=== PATIENT | male | born 1990 | race Caucasian/White ===

== ENCOUNTER → 2020-03-03 11:10 | Outpatient (BNVA) | payer SELFPAY | PROVIDERS: Family Provider Family Medicine; PCP Family Medicine; Visit Provider Emergency Medicine | DX: R11.0 Nausea (principal); A09 Infectious gastroenteritis and colitis, unspecified; R68.89 Other general symptoms and signs | CPT/HCPCS: 87400; 87635 ==

== ENCOUNTER → 2020-05-06 12:35 | Outpatient (BNVA) | payer MEDICARE, MEDICAID, SELFPAY | PROVIDERS: Family Provider Family Medicine; PCP Family Medicine; Visit Provider Emergency Medicine | DX: E11.65 Type 2 diabetes mellitus with hyperglycemia (principal); E78.1 Pure hyperglyceridemia; Z79.899 Other long term (current) drug therapy | CPT/HCPCS: 36416; 80053; 80061; 80164; 82652; 82962; 83036; 83880; 84443; 87635 ==

== ENCOUNTER → 2020-09-08 10:29 | Outpatient (BNVA) | payer MEDICARE, MEDICAID, SELFPAY | PROVIDERS: Family Provider Family Medicine; PCP Family Medicine; Visit Provider Family Medicine | DX: E11.40 Type 2 diabetes mellitus with diabetic neuropathy, unspecified (principal); L21.9 Seborrheic dermatitis, unspecified | CPT/HCPCS: 80053; 83036 ==

== ENCOUNTER 2020-10-12 16:16 | Inpatient (IN) | payer MEDICARE, MEDICAID, SELFPAY ==
[2020-10-12 16:25] VITALS: BP 112/74; PULSE 56; RESP 16; TEMP 36.8; O2SAT 100; BMI 40.8
[2020-10-12 16:31] VITALS: BP 112/74; PULSE 59; RESP 18; O2SAT 100
--- NOTE | 2020-10-12 16:58 | ED_ITS ---
HPI - Psych General: Chief Complaint: Psychiatric Symptoms Stated Complaint: SI Time Seen by Provider: 10/12/20 16:52 History of Present Illness: HPI Narrative: 30-year-old male presents to the emergency room with complaints of auditory hallucinations. He states he has a history of schizophrenia he recently ran out of his Risperdal they had increased it. He states he is having increased auditory hallucinations he says the voices are telling him to kill himself he states he does not want to kill himself but is afraid he will give into the voices. He denies having done anything to himself up to this point denies any recent illnesses. complaint: suicidal ideation and altered mental status Onset (ago): day(s) Duration: constant History of same: Yes Relieving factors: none Exacerbating factors: none Context: not taking psychiatric medications Associated psychiatric symptoms: none Associated symptoms: Reports auditory hallucinations, depression and suicidal ideation; Deny visual hallucinations, delusions, homicidal ideation or racing thoughts Treatments prior to arrival: none If self harm: admits thoughts of self harm and has plan Review of Systems Const: Denies: fever(s), chills, body aches, change in appetite, fatigue or malaise ENMT: Denies: throat pain, ear or mastoid pain, nasal discharge or nasal congestion Card: Denies: chest pain, edema, dyspnea on exertion or orthopnea Resp: Denies: dyspnea, productive cough or non-productive cough GI: Denies: abdominal pain, nausea, vomiting, hematemesis, coffee ground emesis, diarrhea, constipation, bloating, hematochezia or melena : Denies: flank pain, dysuria, urinary frequency or urinary urgency Skin/Breast: Denies: rash or pruritus Psych: Reports: depression, auditory hallucinations and suicidal ideation; Denies: visual hallucinations or homicidal ideation PFS ED PFSH: Medical History (Updated 09/10/20 @ 22:56 by Yoselyn Angel MD) Chronic schizophrenia Diabetic neuropathy Hypertriglyceridemia Obstructive sleep apnea (adult) (pediatric) Type 2 diabetes mellitus without complication, without long-term current use of insulin Surgical History S/P appendectomy S/P tonsillectomy Social History Smoking and tobacco status: former smoker Physical Exam Const: COMMON NORMALS: no acute distress GENERAL APPEARANCE: cooperative and comfortable HENMT: COMMON NORMALS: normocephalic, atraumatic and hearing grossly normal bilaterally HEAD & SCALP: normocephalic and atraumatic Eye: COMMON NORMALS: Equal, round and reactive pupils present, EOMs intact bilaterally, conjunctivae normal and no scleral icterus CONJUNCTIVA: Yes conjunctivae normal PUPIL: Yes Equal, round and reactive pupils present Neck/C-Spine: COMMON NORMALS: no JVD Resp: COMMON NORMALS: normal respiratory effort, No retractions, No use of accessory muscles and clear to auscultation bilaterally AUSCULTATION: clear to auscultation bilaterally Cardio: COMMON NORMALS: no JVD, regular rate, regular rhythm and No murmurs present (Cardio) RATE: regular rate RHYTHM: regular rhythm GI: COMMON NORMALS: Soft to palpation and No hepatosplenomegaly present AUSCULTATION: Yes normoactive bowel sounds PALPATION: Yes Soft to palpation, No Tenderness to palpation present (GI), No Guarding due to palpation present (GI) and Yes No hepatosplenomegaly present Extremity: COMMON NORMALS: normal to inspection, capillary refill normal, no clubbing, cyanosis or edema, no calf tenderness and no pedal edema Psych: THOUGHT CONTENT: No delusions Skin: COMMON NORMALS: no rashes or lesions noted GENERAL SKIN EXAM: no rashes or lesions noted MDM - Psych MDM Narrative: Medical decision making narrative: Patient acutely psychotic with auditory hallucinations threatening harm to himself discussed Dr. Angel will admit to neuro psych Lab Data: Labs: Lab Results 10/12/20 10/12/20 10/12/20 Range/Units 04:33 16:45 17:05 WBC 9.9 (4.0-10.0) 10^3/ uL RBC 4.89 (4.1-5.3) 10^6/u L Hgb 15.0 (11.7-16.6) g/dL Hct 44.8 (42.0-52.0) % MCV 91.6 (80-94) fL MCH 30.7 (28.0-34.0) pg MCHC 33.5 (30.0-36.0) g/dL RDW 11.9 L (12.1-15.1) % Plt Count 292 (130-400) 10^3/c mm MPV 10.7 H (7.4-10.4) fL Neut % (Auto) 50.2 % Lymph % (Auto) 37.7 % Kenton % (Auto) 8.8 % Eos % (Auto) 1.9 % Baso % (Auto) 0.9 % Neut # (Auto) 4.95 (1.8-7.7) 10^3/u L Lymph # (Auto) 3.7 (0.8-4.8) 10^3/u L Kenton # (Auto) 0.9 (0.2-0.9) 10^3/u L Eos # (Auto) 0.2 (0.0-0.8) 10^3/u L Baso # (Auto) 0.1 (0.0-0.1) 10^3/u L Nucleated RBC % (a uto) 0 % Nucleated RBCs # 0.0 /100WBC Sodium (136-145) mmol/L Potassium (3.5-5.1) mmol/L Chloride (98-107) mmol/L Carbon Dioxide (22-29) mmol/L Anion Gap (5-19) BUN (6-20) mg/dL Creatinine (0.7-1.2) mg/dL GFR Calculation (90-130) mL/min Glucose (65-115) mg/dL Calculated Osmolal ity (285-295) mOsm/k g Calcium (8.5-10.5) mg/dL Total Bilirubin (0.15-1.2) mg/dL AST (0-40) U/L ALT (0-41) U/L Alkaline Phosphata se (40-130) IU/L Total Protein (6.6-8.7) g/dL Albumin (3.5-5.2) g/dL Globulin (1.3-4.6) g/dL Salicylates (3-10) mg/dL Urine Opiates Scre en Negative (Negative) ng/mL Acetaminophen (10-30) ug/mL Ur Barbiturates Sc reen Negative (Negative) ng/mL Valproic Acid 12.9 L (50-100) ug/mL Ur Phencyclidine S crn Negative (Negative) ng/mL Ur Amphetamines Sc reen Negative (Negative) ng/mL U Benzodiazepines Scrn Negative (Negative) ng/mL Urine Cocaine Scre en Negative (Negative) ng/mL U Marijuana (THC) Screen Negative (Negative) ng/mL 10/12/20 Range/Units 17:05 WBC (4.0-10.0) 10^3/ uL RBC (4.1-5.3) 10^6/u L Hgb (11.7-16.6) g/dL Hct (42.0-52.0) % MCV (80-94) fL MCH (28.0-34.0) pg MCHC (30.0-36.0) g/dL RDW (12.1-15.1) % Plt Count (130-400) 10^3/c mm MPV (7.4-10.4) fL Neut % (Auto) % Lymph % (Auto) % Kenton % (Auto) % Eos % (Auto) % Baso % (Auto) % Neut # (Auto) (1.8-7.7) 10^3/u L Lymph # (Auto) (0.8-4.8) 10^3/u L Kenton # (Auto) (0.2-0.9) 10^3/u L Eos # (Auto) (0.0-0.8) 10^3/u L Baso # (Auto) (0.0-0.1) 10^3/u L Nucleated RBC % (a uto) % Nucleated RBCs # /100WBC Sodium 140 (136-145) mmol/L Potassium 4.1 (3.5-5.1) mmol/L Chloride 102 (98-107) mmol/L Carbon Dioxide 27 (22-29) mmol/L Anion Gap 15.1 (5-19) BUN 10 (6-20) mg/dL Creatinine 0.7 (0.7-1.2) mg/dL GFR Calculation 130.7 H (90-130) mL/min Glucose 99 (65-115) mg/dL Calculated Osmolal ity 289 (285-295) mOsm/k g Calcium 9.4 (8.5-10.5) mg/dL Total Bilirubin 0.3 (0.15-1.2) mg/dL AST 15 (0-40) U/L ALT 23 (0-41) U/L Alkaline Phosphata se 48 (40-130) IU/L Total Protein 7.3 (6.6-8.7) g/dL Albumin 4.4 (3.5-5.2) g/dL Globulin 2.9 (1.3-4.6) g/dL Salicylates < 0.3 L (3-10) mg/dL Urine Opiates Scre en (Negative) ng/mL Acetaminophen < 5.0 L (10-30) ug/mL Ur Barbiturates Sc reen (Negative) ng/mL Valproic Acid (50-100) ug/mL Ur Phencyclidine S crn (Negative) ng/mL Ur Amphetamines Sc reen (Negative) ng/mL U Benzodiazepines Scrn (Negative) ng/mL Urine Cocaine Scre en (Negative) ng/mL U Marijuana (THC) Screen (Negative) ng/mL Discharge Plan Discharge Patient Disposition: Admitted As Inpatient Admit Provider: All Angel Condition: Stable Discharge Diet: Diabetic Discharge Activity: Resume usual activity Coding Level of Care Code ED Senior Data Integration Developer for Cal Fwd Exam Comprehensive
[2020-10-12 17:23] LABS: Basophils # 0.1 10^3/uL (0.0-0.1); Basophils % 0.9 %; Eosinophils # 0.2 10^3/uL (0.0-0.8); Eosinophils % 1.9 %; Hematocrit 44.8 % (42.0-52.0); Lymphocytes # 3.7 10^3/uL (0.8-4.8); Lymphocytes % 37.7 %; Mean Corpuscular HGB Conc 33.5 g/dL (30.0-36.0); Mean Corpuscular Hemoglobin 30.7 pg (28.0-34.0); Mean Corpuscular Volume 91.6 fL (80-94); Mean Platelet Volume 10.7 fL (7.4-10.4); Monocytes # 0.9 10^3/uL (0.2-0.9); Monocytes % 8.8 %; Neutrophils # 4.95 10^3/uL (1.8-7.7); Neutrophils % 50.2 %; Nucleated Red Blood Cells % 0 %; Platelet Count 292 10^3/cmm (130-400); Red Blood Count 4.89 10^6/uL (4.1-5.3); Red Cell Distribution Width 11.9 % (12.1-15.1); White Blood Count 9.9 10^3/uL (4.0-10.0)
--- NOTE | 2020-10-12 18:04 | PC.NURSE ---
Attempted to call report, was told nurses were busy and would call back
[2020-10-12 18:06] LABS: Alanine Aminotransferase 23 U/L (0-41); Albumin Level 4.4 g/dL (3.5-5.2); Alkaline Phosphatase 48 IU/L (40-130); Anion Gap 15.1 (5-19); Aspartate Amino Transferase 15 U/L (0-40); Blood Urea Nitrogen 10 mg/dL (6-20); Calcium 9.4 mg/dL (8.5-10.5); Carbon Dioxide 27 mmol/L (22-29); Chloride 102 mmol/L (98-107); Globulin 2.9 g/dL (1.3-4.6); Glomerular Filtration Rate 130.7 mL/min (90-130); Glucose 99 mg/dL (65-115); Osmolality Calculated 289 mOsm/kg (285-295); Potassium 4.1 mmol/L (3.5-5.1); Sodium 140 mmol/L (136-145); Total Bilirubin 0.3 mg/dL (0.15-1.2); Total Protein 7.3 g/dL (6.6-8.7)
[2020-10-12 18:13] LABS: Acetaminophen < 5.0 ug/mL (10-30); Salicylate < 0.3 mg/dL (3-10)
[2020-10-12 19:30] VITALS: BP 115/76; PULSE 57; RESP 16; TEMP 36.8; O2SAT 98
[2020-10-12 19:34] LABS: Amphetamines Screen Urine Negative (Negative); Barbiturates Screen Urine Negative (Negative); Benzodiazepines Screen Urine Negative (Negative); Cocaine Screen Urine Negative (Negative); Opiate Screen Urine Negative (Negative); PCP Screen Urine Negative (Negative); THC Screen Urine Negative (Negative)
[2020-10-12 23:00] VITALS: BP 121/77; PULSE 66; TEMP 37.3; O2SAT 96
[2020-10-13] MEDS: hyDROXYzine 25 mg Capsule 50 MG PO (00:14)
[2020-10-13] MEDS: trazodone 50 mg Tablet PO (00:15)
--- NOTE | 2020-10-13 01:49 | PC.NURSE ---
Patient complained of restlessness and insomnia. Trazodone 50 mg and Vistaril 50 mg given po at 0015.
--- NOTE | 2020-10-13 04:22 | PC.NURSE ---
PM Assessment 30/M CAME TO ED FOR ESPERANZA, HX OF BPD/SCHITZOPHRENIA WITH PARANOIA, OUT OF HIS RISPERDAL, VOICES BECAME COMMAND TELLING HIM TO KILL HIMSELF. HE SAYS HE DOES NOT WANT TO BUT HE IS AFRAID HE WILL GIVE INTO THE VOICES. PT REPORTS INCREASING PANIC ATTACKS AND EMPATHIC NOTIONS, HE SAYS, HE ?SEES PEOPLE, GHOSTS, AND HE CAN PHYSICALLY MAKE THEM LEAVE,? PT ALSO REPORTS ?VISIONS THAT ARE VIVID.? HE SAYS, THAT THESE GIFTS ALLOW HIM TO SEE INTO PEOPLE WHEN HE MAKES CONTACT WITH THEM. UDS AND BAL ARE NEG.
--- NOTE | 2020-10-13 04:41 | PC.NURSE ---
Skin assessment revealed no wounds or injuries requiring treatment.
[2020-10-13 05:39] VITALS: BP 106/61; PULSE 77; TEMP 36.6; O2SAT 96
[2020-10-13 06:11] LABS: Valproic Acid Level 12.9 ug/mL (50-100)
[2020-10-13] MEDS: divalproex DR 250 mg Tablet PO (08:44)
[2020-10-13] MEDS: gabapentin 300 mg Capsule PO ×3 (08:44→20:18)
[2020-10-13] MEDS: famotidine 20 mg Tablet 40 MG PO ×2 (08:44→20:18)
[2020-10-13] MEDS: metformin 500 mg Tablet 1000 MG PO ×2 (08:45→20:17)
[2020-10-13] MEDS: risperiDONE 1 mg Tablet 3 MG PO ×2 (08:45→20:19)
[2020-10-13] MEDS: ondansetron 4 MG Tablet PO ×2 (08:45→20:19)
[2020-10-13] MEDS: atorvastatin 40 mg Tablet 20 MG PO (08:45)
[2020-10-13 12:53] VITALS: BP 90/57; PULSE 70; RESP 16; TEMP 36.2; O2SAT 97
[2020-10-13] MEDS: ARIPiprazole 10 mg Tablet PO (13:32)
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
[2020-10-13 19:50] LABS: Glucose Point of Care 209 mg/dL (70-110)
[2020-10-13] MEDS: divalproex ER 500 mg Tablet (24H) PO (20:18)
[2020-10-13] MEDS: sertraline 50 mg Tablet PO (20:18)
[2020-10-13 21:37] VITALS: BP 98/67; PULSE 68; RESP 17; TEMP 36.7; O2SAT 95
[2020-10-14 06:00] VITALS: BP 128/82; PULSE 92; RESP 17; TEMP 36.8; O2SAT 96
[2020-10-14 06:32] LABS: Glucose Point of Care 128 mg/dL (70-110)
[2020-10-14] MEDS: ARIPiprazole 10 mg Tablet PO (08:40)
[2020-10-14] MEDS: famotidine 20 mg Tablet 40 MG PO ×2 (08:40→19:58)
[2020-10-14] MEDS: atorvastatin 40 mg Tablet 20 MG PO (08:40)
[2020-10-14] MEDS: gabapentin 300 mg Capsule PO ×3 (08:41→19:57)
[2020-10-14] MEDS: divalproex DR 250 mg Tablet PO (08:41)
[2020-10-14] MEDS: risperiDONE 1 mg Tablet 3 MG PO ×2 (08:41→19:59)
[2020-10-14] MEDS: ondansetron 4 MG Tablet PO ×2 (08:42→19:57)
[2020-10-14] MEDS: metformin 500 mg Tablet 1000 MG PO ×2 (08:42→19:58)
[2020-10-14 14:00] VITALS: BP 112/78; PULSE 78; RESP 16; TEMP 36.7; O2SAT 99
--- NOTE | 2020-10-14 16:03 | PM.NPN ---
Subjective NPU Subjective: Interval history: Hector presents today reporting that he is feeling significantly better with the initiation of Abilify. He denies any significant side effects at this time. Reports eating okay and sleeping fine. He is feeling less scared about being at home with his significant other Mental Status Exam MSE Comments: This is an obese versus morbidly obese white male in hospital scrubs with limited grooming and eye contact. No abnormal movements except for mild psychomotor retardation. Cooperative with exam in no acute distress. Speech was decreased rate and volume. Mood described as a little better, affect congruent and less subdued. Thought process organized. Thought content: Patient denied suicidal or homicidal ideation, there was improvement in paranoia reported and noted, he denied visual hallucinations but did endorse resolving auditory hallucinations. Attention and concentration were intact and memory was mostly reliable but none were formally tested. He is alert and oriented x3. Insight and judgment appear fair and impulse control is limited, but improving. Vitals/I&O/Wt Last Vital Signs Temp 98.1 F 10/14/20 14:00 Pulse 78 10/14/20 14:00 Resp 16 10/14/20 14:00 BP 112/78 10/14/20 14:00 Pulse Ox 99 10/14/20 14:00 Data NPU : 10/12/20 17:05 10/12/20 17:05 A&P Additional A&P Information (1) Seborrheic dermatitis: (2) Diabetic neuropathy: (3) Hypertriglyceridemia: (4) Type 2 diabetes mellitus without complication, without long-term current use of insulin: (5) Chronic schizophrenia: (6) Obstructive sleep apnea (adult) (pediatric): Additional A&P Information This is a 30-year-old white male with a history of schizophrenia who presents with auditory hallucinations, suicidal thoughts off of medication but open to medication trials. 1. Continue current medication. 2. Continue every 15 minute checks for safety. 3. Encourage individual, group and milieu therapies. Involuntary Hold Information 96 Hour Hold: 96 Hour Involuntary Admission: Yes 96 Hour Hold Ending Date: 10/18/20 96 Hour Hold Ending Time: 17:30 Attestations NPU Medical Necessity Statement*: Inpatient hospitalization is medically necessary and the clinically appropriate intervention at this time. We will monitor medications and make changes as indicated. Likely length of stay 1-4 days. Coding Level of Care Code Acute Artificial Plastic Eye Maker for Cal Valdez
[2020-10-14 19:27] LABS: Glucose Point of Care 235 mg/dL (70-110)
[2020-10-14] MEDS: divalproex ER 500 mg Tablet (24H) PO (19:59)
[2020-10-14] MEDS: sertraline 50 mg Tablet PO (20:00)
[2020-10-14 22:00] VITALS: BP 106/71; PULSE 73; RESP 17; TEMP 37.5; O2SAT 92
[2020-10-15 06:00] VITALS: BP 126/78; PULSE 64; RESP 17; TEMP 37; O2SAT 95
[2020-10-15 07:20] LABS: Glucose Point of Care 177 mg/dL (70-110)
[2020-10-15] MEDS: ondansetron 4 MG Tablet PO ×2 (07:55→20:03)
[2020-10-15] MEDS: divalproex DR 250 mg Tablet PO (07:55)
[2020-10-15] MEDS: famotidine 20 mg Tablet 40 MG PO ×2 (07:55→20:03)
[2020-10-15] MEDS: ARIPiprazole 10 mg Tablet PO (07:55)
[2020-10-15] MEDS: gabapentin 300 mg Capsule PO ×3 (07:55→20:03)
[2020-10-15] MEDS: risperiDONE 1 mg Tablet 3 MG PO ×2 (07:56→20:03)
[2020-10-15] MEDS: metformin 500 mg Tablet 1000 MG PO ×2 (07:56→20:02)
[2020-10-15] MEDS: atorvastatin 40 mg Tablet 20 MG PO (07:56)
[2020-10-15 10:53] LABS: Glucose Point of Care 251 mg/dL (70-110)
[2020-10-15 13:21] VITALS: BP 126/78; PULSE 64; RESP 18; TEMP 37
[2020-10-15 16:47] LABS: Glucose Point of Care 220 mg/dL (70-110)
--- NOTE | 2020-10-15 18:12 | P.PN_ITS ---
Subjective NPU Subjective: Interval history: Hector presents today reporting that things are going well. He feels that he did much better on the medication and denies that sounding cough that he had before. He is very hopeful for discharge to home and we discussed the risk benefits and alternatives of a discharge in the morning. He is tolerating the medication okay and denied any significant issues. Mental Status Exam MSE Comments: This is an obese versus morbidly obese white male in hospital scrubs with limited grooming and eye contact. No abnormal movements except for mild psychomotor retardation. Cooperative with exam in no acute distress. Speech was more normal rate and volume. Mood described as better, affect congruent and less subdued. Thought process organized. Thought content: Patient denied suicidal or homicidal ideation, there was no paranoia reported and he appeared less guarded, he denied visual or auditory hallucinations. Attention and concentration were intact and memory was mostly reliable but none were formally tested. He is alert and oriented x3. Insight and judgment appear fair and impulse control is improving. Vitals/I&O/Wt Last Vital Signs Temp 98 F 10/15/20 22:00 Pulse 90 10/15/20 22:00 Resp 18 10/15/20 22:00 BP 112/75 10/15/20 22:00 Pulse Ox 95 10/15/20 22:00 Data NPU : 10/12/20 17:05 10/12/20 17:05 A&P Additional A&P Information (1) Seborrheic dermatitis: (2) Diabetic neuropathy: (3) Hypertriglyceridemia: (4) Type 2 diabetes mellitus without complication, without long-term current use of insulin: (5) Chronic schizophrenia: (6) Obstructive sleep apnea (adult) (pediatric): Additional A&P Information This is a 30-year-old white male with a history of schizophrenia who presents with auditory hallucinations, suicidal thoughts off of medication but open to medication trials. 1. Continue current medication. 2. Continue every 15 minute checks for safety. 3. Encourage individual, group and milieu therapies. 4. Plan for discharge in the morning. Involuntary Hold Information 96 Hour Hold: 96 Hour Involuntary Admission: Yes 96 Hour Hold Ending Date: 10/18/20 96 Hour Hold Ending Time: 17:30 Attestations NPU Medical Necessity Statement*: Inpatient hospitalization is medically necessary and the clinically appropriate intervention at this time. We will monitor medications and make changes as indicated. Likely length of stay 1-3 days. Coding Level of Care Code Acute Central Sterilization Technician for Cal Valdez
[2020-10-15 19:41] LABS: Glucose Point of Care 302 mg/dL (70-110)
[2020-10-15] MEDS: divalproex ER 500 mg Tablet (24H) PO (20:02)
[2020-10-15] MEDS: sertraline 50 mg Tablet PO (20:02)
[2020-10-15 22:00] VITALS: BP 112/75; PULSE 90; RESP 18; TEMP 36.6; O2SAT 95
--- NOTE | 2020-10-15 23:05 | PC.NURSE ---
PM Assessment PT DENIES SI/HI/AH/VH. PT STATES HE HAS TOOTH PAIN AND WOULD LIKE SOMETHING FOR THAT, PHYSICAN CONTACTED, ORDER FOR ORAJEL PLACED BY MED NURSE. HEART/LUNG SOUNDS ARE WNL. BLOOD GLUCOSE IS ELEVATED AT 302. PT IS HELPFUL AND COOPERATIVE WITH STAFF, SAYS I WANT TO GO HOME TO SEE MY SON. PT TALKED TO HIS MOTHER THIS EVENING, ALL WENT WELL, PT SPENT TIME IN THE DAYROOM WITH OTHERS WATCHING TELEVISION, HE REPORTS MEDICATION SEEMS TO BE EFFECTIVE AND FEELS BETTER OVERALL. \ WILL CONTINUE TO OBSERVE
--- NOTE | 2020-10-16 05:29 | PC.NURSE ---
10/13/21 ADMISSION NOTATION 30/M FROM ED, EXPERIENCING AH WORSENING TO COMMAND AH-VOICES ARE TELLING HIM TO KILL HIMSELF. PT SAYS, I DON'T WANT TO , BUT I AM AFRAID I WILL GIVE IN TO THE VOICES. DOES NOT WANT TO BUT HE IS AFRAID HE WILL GIVE INTO THE VOICES. PT REPORTS INCREASING PANIC ATTACKS, SEEING VISIONS,INCREASED EMPATHIC NOTIONS, AND SAYS, HE ?SEES PEOPLE, GHOSTS, AND HE CAN PHYSICALLY MAKE THEM LEAVE,? AND THESE GIFTS ALLOW HIM TO SEE INTO PEOPLE WHEN HE MAKES CONTACT WITH THEM. HX OF BIPOLAR DISORDER AND SCHIZOPHRENIA.
[2020-10-16 05:35] VITALS: BMI 40.8
[2020-10-16 06:00] VITALS: BP 88/63; PULSE 98; RESP 18; TEMP 36.5; O2SAT 94
[2020-10-16 06:35] LABS: Glucose Point of Care 177 mg/dL (70-110)
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
[2020-10-16] MEDS: ARIPiprazole 10 mg Tablet PO (07:57)
[2020-10-16] MEDS: risperiDONE 1 mg Tablet 3 MG PO (07:57)
[2020-10-16] MEDS: famotidine 20 mg Tablet 40 MG PO (07:57)
[2020-10-16] MEDS: ondansetron 4 MG Tablet PO (07:58)
[2020-10-16] MEDS: atorvastatin 40 mg Tablet 20 MG PO (07:58)
[2020-10-16] MEDS: metformin 500 mg Tablet 1000 MG PO (07:58)
[2020-10-16] MEDS: gabapentin 300 mg Capsule PO ×2 (07:58→11:55)
[2020-10-16] MEDS: divalproex DR 250 mg Tablet PO (07:58)
[2020-10-16 08:28] VITALS: BP 88/63; PULSE 98; RESP 18; TEMP 36.5; O2SAT 94
[2020-10-16 11:12] LABS: Valproic Acid Level 25.9 ug/mL (50-100)
== END 2020-10-16 13:00 | disposition home or self-care (01) | DRG 885 ==
LOC: ER 17:52 → NP 17:59
PROVIDERS: Admitting Provider Psychiatry & Neurology Psychiatry; Emergency Provider Family Medicine; PCP Family Medicine; Visit Provider Psychiatry & Neurology Psychiatry
DX: F20.9 Schizophrenia, unspecified (principal); R45.851 Suicidal ideations; Z68.41 Body mass index [BMI] 40.0-44.9, adult; L21.9 Seborrheic dermatitis, unspecified; E11.42 Type 2 diabetes mellitus with diabetic polyneuropathy; E78.1 Pure hyperglyceridemia; G47.33 Obstructive sleep apnea (adult) (pediatric); Z81.8 Family history of other mental and behavioral disorders; E66.01 Morbid (severe) obesity due to excess calories; Z79.84 Long term (current) use of oral hypoglycemic drugs; Z87.891 Personal history of nicotine dependence; T50.996A Underdosing of other drugs, medicaments and biological substances, initial encounter; Y92.009 Unspecified place in unspecified non-institutional (private) residence as the place of occurrence of the external cause
CPT/HCPCS: 36415; 36416; 80053; 80164; 80306; 80307; 82962; 85025; 99285; Q0162

== ENCOUNTER → 2020-12-27 17:21 | Outpatient (BNVA) | payer MEDICARE, MEDICAID, SELFPAY | PROVIDERS: PCP Family Medicine; Visit Provider Family Medicine | DX: E78.1 Pure hyperglyceridemia (principal); E11.42 Type 2 diabetes mellitus with diabetic polyneuropathy; F32.9 Major depressive disorder, single episode, unspecified; M62.830 Muscle spasm of back | CPT/HCPCS: 80053; 80061; 83036 ==

== ENCOUNTER → 2021-04-13 09:47 | Outpatient (BNVA) | payer MEDICARE, MEDICAID, SELFPAY | PROVIDERS: PCP Family Medicine; Visit Provider Family Medicine | DX: K21.9 Gastro-esophageal reflux disease without esophagitis (principal); E11.42 Type 2 diabetes mellitus with diabetic polyneuropathy | CPT/HCPCS: 80053; 83036 ==